=== PATIENT | male | born 1985 | race Caucasian/White ===

== ENCOUNTER 2018-03-14 09:41 | Emergency (ER) | payer BC | END 2018-03-14 10:30 | disposition home or self-care (01) | LOC: FTE 09:41 | DX: Z48.01 Encounter for change or removal of surgical wound dressing (principal) | CPT/HCPCS: 99281 ==

== ENCOUNTER 2018-03-19 07:46 | Emergency (ER) | payer BC | END 2018-03-19 08:14 | disposition home or self-care (01) | LOC: FTE 07:46 | DX: Z48.02 Encounter for removal of sutures (principal); F17.210 Nicotine dependence, cigarettes, uncomplicated | CPT/HCPCS: 99281 ==